=== PATIENT | female | born 1985 | race Caucasian/White ===

== ENCOUNTER → 2016-09-19 | Outpatient (CLI) | payer BC ==
[~2016-09-19] MED LIST: PRENTAB26 PO; RANI150T3 PO; SULF800T23 PO
[2016-09-19 12:08] LABS: HEMATOCRIT 38.2 % (37-47)
[2016-09-19 12:20] LABS: URINE APPEARANCE CLOUDY (CLEAR); URINE BILIRUBIN NEG (NEG); URINE COLOR YELLOW; URINE EPITHELIAL CELL AUTO >30 /lpf (0-5); URINE NITRITE NEG (NEG); URINE SPECIFIC GRAVITY 1.027 (1.000-1.030); UROBILINOGEN NEG (NEG)
[2016-09-19 12:25] LABS: MANUAL MICROSCOPIC REQUIRED? NO; REVIEW REQ? YES
[2016-09-19 13:04] LABS: GTGD 50 Grams
== END | disposition home or self-care (01) ==
LOC: C.LAB1850 10:23
PROVIDERS: ATTEND Obstetrics & Gynecology
DX: O09.813 Supervision of pregnancy resulting from assisted reproductive technology, third trimester (principal)

== ENCOUNTER → 2016-10-19 | Outpatient (CLI) | payer BC ==
[2016-10-19 11:44] LABS: PATIENT HEIGHT 167.6 cm
[2016-10-19 14:23] LABS: CREATININE 0.65 mg/dl (0.6-1.2); URINE TOTAL PROTEIN CALC 178.9 mg/24 hr (0-149.1)
== END | disposition home or self-care (01) ==
LOC: C.LABBC 11:33
PROVIDERS: ATTEND Obstetrics & Gynecology
DX: O13.9 Gestational [pregnancy-induced] hypertension without significant proteinuria, unspecified trimester (principal); Z3A.00 Weeks of gestation of pregnancy not specified

== ENCOUNTER → 2016-11-12 | Outpatient (CLI) | payer BC | END | disposition home or self-care (01) | LOC: C.LABSPEC 13:38 | PROVIDERS: ATTEND Obstetrics & Gynecology | DX: O09.813 Supervision of pregnancy resulting from assisted reproductive technology, third trimester (principal) ==

== ENCOUNTER 2016-11-25 02:15 | Inpatient (IN) | payer BC ==
[~2016-11-25] VITALS: Ht 167.6 cm; Wt 95.0 kg
[2016-11-25] MEDS ORDERED: RANI150T3 PO (02:51)
[2016-11-25 02:52] VITALS: Ht 167.6 cm; Wt 95.0 kg
[2016-11-25] MEDS ORDERED: LACTATED RINGER'S 1000ML 1,000 ML IV PRN (03:06)
[2016-11-25] MEDS ORDERED: PENICILLIN G POTASSIUM IV 6 MU in DEXTROSE 5% 250ML 250 ML IV ONE (03:15)
[2016-11-25 03:30] LABS: HEMATOCRIT 37.5 % (37-47); MEAN CELL VOLUME 80.3 fL (80-100); MEAN CORPUSCULAR HEMOGLOBIN 26.6 pg (25-34); MEAN CORPUSCULAR HGB CONC 33.1 g/dl (32-36); PLATELET COUNT 256 K/uL (130-400); RED BLOOD COUNT 4.67 M/uL (4.2-5.4); WHITE BLOOD COUNT 12.15 K/uL (4.8-10.8)
[2016-11-25] MEDS: LACTATED RINGER'S 1000ML 1,000 ML IV SCH ×3 (03:37→16:54)
[2016-11-25] MEDS ORDERED: LACTATED RINGER'S 1000ML 500 ML IV PRN ×2 (06:15→08:03)
[2016-11-25] MEDS ORDERED: OXYTOCIN 30 UNITS/500ML NSS IV PRN ×2 (06:15→23:15)
[2016-11-25] MEDS: PENICILLIN G POTASSIUM IV 3 MU in DEXTROSE 5% 100ML 100 ML IV PRN ×4 (07:09→19:08)
[2016-11-25] MEDS ORDERED: BUPIVACAINE 0.25% 30 ML VIAL ONE (07:12)
[2016-11-25] MEDS ORDERED: EpHEDrine SULFATE INJ 50 MG/ML AMP ONE (07:13)
[2016-11-25] MEDS ORDERED: FENTANYL CITRATE INJ 50 MCG/1 ML 2 ML VIAL ONE (07:13)
[2016-11-25] MEDS ORDERED: FENTANYL 2MCG/ML ROPIV 1.25MG/ML 100ML BAG EPI ONE (07:14)
[2016-11-25] MEDS ORDERED: NALOXONE HCL INJ 1 MG in SODIUM CHLORIDE 0.9% 1000ML 1,000 ML IV PRN (08:03)
[2016-11-25] MEDS ORDERED: ONDANSETRON INJ 2 MG/ML 2 ML VIAL IV PRN (08:15)
[2016-11-25] MEDS ORDERED: NALBUPHINE HCL INJ 10 MG/ML AMP IV PRN (08:15)
[2016-11-25] MEDS ORDERED: NALOXONE HCL INJ 0.4 MG/1 ML VIAL/CARP IV PRN (08:15)
[2016-11-25] MEDS ORDERED: DiphenhydrAMINE HCL 50 MG/ML VIAL IV PRN (08:15)
[2016-11-25] MEDS ORDERED: EpHEDrine SULFATE INJ 50 MG/ML AMP IV PRN (08:15)
[2016-11-25] MEDS: FENTANYL 2MCG/ML ROPIV 1.25MG/ML 100ML BAG EPI PRN ×2 (16:42→19:01)
[2016-11-25] MEDS ORDERED: LANOLIN OINT EXT PRN ×2 (23:15)
[2016-11-25] MEDS ORDERED: ACETAMINOPHEN/CODEINE 300/30MG TAB PO PRN ×2 (23:15)
[2016-11-25] MEDS ORDERED: OXYCODONE/ACETAMINOPHEN 5-325 TAB PO PRN (23:15)
[2016-11-25] MEDS ORDERED: HYDROCORTISONE ACETATE 25 MG SUPP PR PRN (23:15)
[2016-11-25] MEDS ORDERED: SUPERCREAM 0.870 % 15GM JAR EXT PRN (23:15)
[2016-11-25] MEDS ORDERED: BENZOCAINE 20% AER SPR 82.5 GM CAN EXT PRN (23:15)
[2016-11-25] MEDS ORDERED: ACETAMINOPHEN 325 MG TAB PO PRN (23:15)
--- NOTE | 2016-11-25 23:24 | Anesthesia Procedure Note ---
Anesthesia Epidural Removal Nt Date & Time Nov 25, 2016 at 23:23 Vital Signs Pain Intensity: 5.0 Notes Mental Status: alert / awake / arousable, participated in evaluation Nausea / Vomiting: adequately controlled Pain: adequately controlled Airway Patency, RR, SpO2: stable & adequate BP & HR: stable & adequate Hydration State: stable & adequate Neuraxial Anesthesia: was administered, sensory block is resolving Anesthetic Complications: no major complications apparent, pt satisfied with anesthetic care Epidural: removed without complications, with tip intact
[2016-11-26] VITALS (7 sets, daily range): BP systolic 103–130; BP diastolic 32–79; PULSE 84–113; TEMP 36.5–37; O2SAT 96–97
--- NOTE | 2016-11-26 00:57 | DELIVERY SUMMARY ---
DATE OF OPERATION: 11/25/2016 Xiomara arrived into labor and delivery with ruptured membranes. IV Pitocin was started and heart rate was category 1. She received Pitocin augmentation due to rupture of membranes and progressed to the point of having an epidural and then eventually, progressed to fully dilated. She pushed for approximately 2 hours, delivering a baby in left occiput anterior position. There was a tight nuchal cord, which was clamped and cut after delivery of the head. Mouth and then nares were suctioned with a bulb. Baby was delivered by gentle traction. No excessive force was used. Baby was a live male infant, did require positive pressure ventilation early on, but responded to this nicely and no other further measures were required. The placenta was delivered with gentle traction. Cord gases and cord blood had been obtained. A second-degree tear repaired with 3-0 Vicryl as well as a small periclitoral tear. We did place a red rubber catheter into her urethra to ensure no closure of this as we closed the periclitoral tear and then this was removed. Sponge and instrument counts were correct. IV Pitocin was started and estimated blood loss 250 mL. I attest to the content of the Intraoperative Record and any orders documented therein. Any exceptio ns are noted below.
[2016-11-26] MEDS: IBUPROFEN 600 MG TAB PO PRN ×4 (03:28→20:02)
--- NOTE | 2016-11-26 08:28 | Progress Note ---
Subjective Nov 26, 2016. Subjective conversation w/ patient, physical exam, chart review, lab review Ambulation: ambulating normally Diet Tolerance: Regular Diet Lochia: Small Feeding Type: Breast Feeding Objective Vital Signs Date Time Temp Pulse Resp B/P Pulse Ox O2 Delivery O2 Flow Rate FiO2 11/26/16 03:30 36.5 97 20 125/79 11/26/16 01:20 Room Air 11/26/16 01:20 37.0 104 20 130/79 Physical Exam General Appearance: WELL-APPEARING Abdomen: non tender Fundus: Firm Extremities: no calf tenderness Laboratory Results Last 24 Hours Test 11/26/16 06:40 Hemoglobin 10.3 g/dL Hematocrit 31.0 % Assessment and Plan Post- Day#: 1 Continue Routine Care: ccc
[2016-11-26] MEDS: DOCUSATE SODIUM 100 MG CAP PO SCH ×2 (08:33→20:02)
[2016-11-26] MEDS: PRENATAL VITAMIN TAB PO SCH (08:33)
[2016-11-26] MEDS: CALCIUM CARBONATE 500 MG CHEWABLE PO PRN (13:15)
[2016-11-26] MEDS ORDERED: BISACODYL 5 MG TABEC PO SCH (20:00)
[2016-11-27] MEDS: IBUPROFEN 600 MG TAB PO PRN ×3 (03:56→15:43)
[2016-11-27] MEDS: CALCIUM CARBONATE 500 MG CHEWABLE PO PRN (03:57)
[2016-11-27] MEDS ORDERED: BISACODYL 10 MG SUPP PR PRN (07:00)
--- NOTE | 2016-11-27 07:15 | Progress Note ---
Subjective Nov 27, 2016. Subjective conversation w/ patient, physical exam Ambulation: ambulating normally Voiding: no voiding problems Passing Gas: Yes Diet Tolerance: Regular Diet Lochia: Small Feeding Type: Breast Feeding Review of Systems Constitutional: No chills, No fever Respiratory: No cough, No shortness of breath Cardiac: No chest pain, No palpitations Abdomen: + problem reported (heart burn (using tums)) Objective Vital Signs Date Time Temp Pulse Resp B/P Pulse Ox O2 Delivery O2 Flow Rate FiO2 11/26/16 23:30 36.8 95 16 120/32 11/26/16 23:30 Room Air 11/26/16 20:00 36.6 113 16 103/62 11/26/16 15:05 36.7 90 18 123/74 96 Room Air 11/26/16 15:05 96 Room Air 11/26/16 11:50 36.7 84 16 125/73 96 Room Air 11/26/16 08:10 36.7 96 16 121/77 97 Room Air 11/26/16 08:10 97 Room Air Physical Exam General Appearance: WELL-APPEARING, NO APPARENT DISTRESS Respiratory/Chest: lungs clear, no respiratory distress Cardiovascular: regular rate, rhythm, no murmur Abdomen: non tender, soft Assessment and Plan Post- Day#: 2 Continue Routine Care: Resident Physician Supervision Note: I interviewed and examined the patient. Discussed with Dr. Hendrix and agree with findings and plan as documented in the note. Any exceptions or clarifications are listed here: [None] Documented By: Luz Elena Mccullough s/p Day 2 - vital reviewed and wnl - Blood: A+, GBS+, Rubella immune - Encourage ambulation, encourage breast feeding, monitor lochia - Patient doing well clinically - PATIENT TO BE DISCHARGED TONIGHT
--- NOTE | 2016-11-27 07:17 | Discharge Instructions ---
Discharge Instructions Date of Service Nov 27, 2016. Admission Reason for Admission: PROM Discharge Discharge Diagnosis / Problem: Spontaneous Vaginal Delivery Discharge Goals Goal(s): Routine recovery after delivery Medications Continue Dispensed Medications: supercream, dermaplast, tucks, lansinoh Activity Recommendations Activity Limitations: per Instructions/Follow-up section . Instructions / Follow-Up Instructions / Follow-Up ACTIVITY RECOMMENDATIONS: * Gradual return to full activity over the next 2-3 weeks. * No lifting - nothing heavier than baby over the next 2-3 weeks. * Do not engage in vigorous exercise, sexual activity or sports until cleared by your physician. * Do not drive or operate any motorized equipment until cleared by your physician. * You may shower/bathe daily. MEDICATIONS: For discomfort or pain, you may use Acetaminophen (Tylenol), Ibuprofen (Advil), or Naproxen (Aleve) following the package directions. For constipation you may use Colace following the package directions. BREAST CARE: If you are not breast feeding: * Wear a supportive bra 24 hours a day for one to two weeks. * Avoid stimulating your breasts and nipples as much as possible during the first few weeks after delivery. * When taking a shower, have the warm water hit your back, not breasts. * When your breasts feel full, apply ice packs. Usually three to four times a day helps ease the discomfort. * Take a mild pain medication (Tylenol / Motrin) when you are uncomfortable. If breast feeding: * Use breast milk to lubricate nipples. Lansinoh cream may be used for sore nipples. You do not need to remove cream prior to breast feeding. If using a different brand of cream, check the label for directions regarding removal of cream prior to nursing. * Wear a supportive bra. * If having problems with breasts or breast feeding, call a netsuite consultant or your health care provider. EPISIOTOMY CARE: After delivery, if you have an episiotomy (stitches), the following steps will ease discomfort and aid healing. * For the first 24 hours after delivery, place ice packs next to your episiotomy to help reduce swelling. * After the first 24 hour-period, sitz baths, either portable or in the tub, are suggested. A shower with a shower arm sprayed over the episiotomy may be comforting. * Sumaya care should be done after each voiding and bowel movement. Squirt warm water from a plastic bottle over the perineum (region of the body between the anus and urinary opening) and pat dry. * Use Dermoplast to ease discomfort. Shake container. [place] directly over the episiotomy. Place a Tucks on a clean sanitary pad next to your episiotomy. SPECIAL CARE INSTRUCTIONS: When you are discharged from the hospital, it is important for you to follow the instructions listed below: * During the first week at home, you should be able to care for yourself and your baby. In addition, the usual light household activities are encouraged. * Limit your activities to the way you feel. Do not try to clean the house or move furniture. Be sensible. * If you actively engage in sports and have done so up until the time of your delivery, you may resume these activities as soon as you feel able. This may take up to one month or even longer. Use good judgment. * Continue to take your vitamins for at least six weeks after the of your baby. * Your diet need not be limited unless you were on a special diet before your delivery. Breast-feeding mothers need around 2500 calories per day and at least 64-80 ounces of fluid per day (8 to 10 glasses). * You should eat foods from the four major food groups. Crash diets or fad diets are to be avoided. Eating lean meats, fresh fruits and vegetables, low-fat dairy products, high fiber foods and a regular exercise program, will help you get back to your pre- weight without putting your health at risk. * Constipation is sometimes a problem after delivery. Take a mild laxative as needed. If breast feeding, Milk of Magnesia is acceptable to use. You may use a suppository or Fleets enema if no episiotomy. * A daily shower or tub bath is suggested. Be sure to thoroughly and gently dry the perineum. * A bloody vaginal discharge will usually continue until around four weeks post . A small amount of bleeding may continue for as long as six weeks. Vaginal discharge changes from the bright red bleeding after delivery to pink then brownish and finally yellowish-pink before becoming white and disappearing. * Bleeding may increase with activity. Your first period may come in 4-8 weeks. If you are breast feeding, your period may be delayed even longer. * Omro (sex) can begin whenever both you and your partner feel comfortable and do not have any form of genital infection. It is recommended that you wait at least six weeks for internal and external healing to occur. If you have questions, please talk to your health care practitioner. A condom should be used to prevent infection and . * Foreplay, gentle intercourse and lubrication is very important the first several times to prevent pain. A water-based lubricant such as K-Y jelly or Astroglide may be used. * If you have RH negative blood and your baby is RH positive, you will receive RHOGAM by injection prior to discharge. The nurse will give you a card to keep with you that has the date and place that you received RHOGAM after delivery. * During your care, you had a Rubella screen done to check for the presence of rubella antibodies in your blood. If your test was negative, you will receive a Rubella vaccine prior to discharge. This vaccine may cause a fever, soreness at the injection site and flu-like symptoms. If these symptoms persist, notify your health care practitioner. is not advised for one month after a Rubella vaccine. * Verbalizes understanding of car seat law as reviewed with patient nursing. * Car Seat hand-out given and reviewed with patient by nursing. * Shaken baby information reviewed with patient by nursing. Call you doctor if: * Heavy bleeding (saturating several pads an hour) or passing clots the size of your fist. * A fever >101 degrees F (38.3 degrees C) on two occasions four hours apart and /or chills. * Unusual pain in the pelvic or vaginal areas. * "Baby Blues" lasting longer than two weeks. If you have any questions or concerns, call your health care practitioner at . FOLLOW UP VISIT: * Please call the office at to schedule a 6 week examination. It is important you keep this appointment. It is important for you to make arrangements for either yearly or twice yearly check-ups thereafter. Current Hospital Diet Patient's current hospital diet: Regular OB Diet Discharge Diet Recommended Diet: Regular Diet Pending Studies Studies pending at discharge: no Medical Emergencies . Who to Call and When: Medical Emergencies: If at any time you feel your situation is an emergency, please call 911 immediately. . Non-Emergent Contact Non-Emergency issues call your: Primary Care Provider, Toe Stripper . . "Provider Documentation" section prepared by Rhett Hendrix. VTE Core Measure Inpt VTE Proph given/why not?: Treatment not indicated
[2016-11-27 08:00] VITALS: BP 131/86; PULSE 86; TEMP 36.5
[2016-11-27] MEDS: DOCUSATE SODIUM 100 MG CAP PO SCH (08:18)
[2016-11-27] MEDS: PRENATAL VITAMIN TAB PO SCH (08:18)
[2016-11-27 15:38] VITALS: BP 147/89; PULSE 93; TEMP 36.6
[2016-11-27 18:00] VITALS: BP_DIAS 89; PULSE 93; TEMP 36.6
[2017-04-26] MEDS ORDERED: PRENTAB26 PO (02:51)
== END 2016-11-27 18:30 | disposition home or self-care (01) | DRG 988 ==
LOC: C.OPB 02:15 → C.LD 02:15 → C.OPB 03:08 → C.LD 03:08 → C.OBG 11-26 01:28 → EDSTATUS 12-07 02:14
PROVIDERS: ADMIT Obstetrics & Gynecology; ATTEND Obstetrics & Gynecology
PROC: 10E0XZZ Delivery of Products of Conception, External Approach (ICD-10-PCS; principal; 2016-11-25)
PROC: 0UQM0ZZ Repair Vulva, Open Approach (ICD-10-PCS; principal; 2016-11-25)
PROC: 0UQJXZZ Repair Clitoris, External Approach (ICD-10-PCS; principal; 2016-11-25)
DX: O42.02 Full-term premature rupture of membranes, onset of labor within 24 hours of rupture (principal); O69.1XX0 Labor and delivery complicated by cord around neck, with compression, not applicable or unspecified; O10.92 Unspecified pre-existing hypertension complicating childbirth; O70.1 Second degree perineal laceration during delivery; O71.89 Other specified obstetric trauma; O99.214 Obesity complicating childbirth; E66.9 Obesity, unspecified; Z68.33 Body mass index [BMI] 33.0-33.9, adult; O99.824 Streptococcus B carrier state complicating childbirth; O75.89 Other specified complications of labor and delivery; Z37.0 Single live birth; Z3A.38 38 weeks gestation of pregnancy

== ENCOUNTER 2017-04-26 17:27 | Emergency (ER) | payer BC ==
[~2017-04-26] VITALS: Ht 167.6 cm; Wt 84.4 kg
[~2017-04-26 17:27] MED LIST changes: -SULF800T23 PO
[2017-04-26 17:36] VITALS: TEMP 37.2; Ht 167.6 cm; Wt 84.4 kg
[2017-04-26] MEDS ORDERED: SODIUM CHLORIDE 0.9% 1000ML 1,000 ML IV STA (17:52)
[2017-04-26] MEDS ORDERED: SULF800T23 PO (18:19)
[2017-04-26 18:27] LABS: BASO % 0.2 %; BASO ABS # 0.02 K/uL (0-0.2); COMPLETE YES; EOS % 0.2 %; IG% 0.4 %; LYMPH % 9.3 %; LYMPH ABS # 1.24 K/uL (1.2-3.4); MEAN CELL VOLUME 80.2 fL (80-100); MEAN CORPUSCULAR HEMOGLOBIN 26.4 pg (25-34); MEAN CORPUSCULAR HGB CONC 32.9 g/dl (32-36); MEAN PLATELET VOLUME 9.5 fL (7.4-10.4); MONO % 7.3 %; NEUT % 82.6 %; PLATELET COUNT 259 K/uL (130-400); RED BLOOD COUNT 5.11 M/uL (4.2-5.4); WHITE BLOOD COUNT 13.33 K/uL (4.8-10.8)
[2017-04-26 18:40] LABS: BUN/CREATININE RATIO 10.8 (10-20); CALCIUM 8.9 mg/dl (8.5-10.1); CREATININE 0.91 mg/dl (0.60-1.20); POTASSIUM 3.6 mmol/L (3.5-5.1)
--- NOTE | 2017-04-26 18:42 | DIAGNOSTIC IMAGING REPORT ---
CT OF THE ABDOMEN AND PELVIS WITHOUT CONTRAST, STONE PROTOCOL CLINICAL HISTORY: Flank pain and hematuria. Urinary tract infection. Fever. COMPARISON STUDY: None. TECHNIQUE: Helical axial images of the abdomen and pelvis were obtained without IV or oral contrast according to renal stone protocol. A dose lowering technique was utilized adhering to the principles of ALARA. FINDINGS: There is a probable punctate calculus within the lower pole of the right kidney shown on image 217 of [id number]. There is no hydronephrosis or hydroureter. No ureteral calculi are present. There is mild infiltration adjacent to the lower pole of the right kidney and proximal to mid right ureter. Evaluation for pyelonephritis is suboptimal on this unenhanced exam. Unenhanced images of the liver, spleen, adrenal glands and pancreas are normal. There is no evidence for a bowel obstruction. The appendix is normal. The ovaries are not enlarged. Visualized skeletal structures are unremarkable. IMPRESSION: Probable punctate right renal calculus. No ureteral calculi or hydronephrosis. Mild right perinephric and periureteral infiltration could be due to an infectious process such as pyelitis/pyelonephritis which is suboptimally assessed on this unenhanced exam. A recently passed calculus could have a similar imaging appearance. This could be correlated with urinalysis and other clinical evidence for an infectious process. Electronically signed by: Kervin Daniel M.D. 04/26/2017 6:41 PM Dictated Date/Time: 04/26/2017 6:32 PM
[2017-04-26 18:43] LABS: ALB/GLOB RATIO 0.9 (0.9-2)
[2017-04-26 18:50] LABS: URINE APPEARANCE CLEAR (CLEAR); URINE BILIRUBIN NEG (NEG); URINE COLOR YELLOW; URINE EPITHELIAL CELL AUTO >30 /lpf (0-5); URINE NITRITE NEG (NEG); UROBILINOGEN NEG (NEG); ZZUR CULT IF INDIC CLEAN CATCH NO
[2017-04-26 18:51] LABS: MANUAL MICROSCOPIC REQUIRED? NO; REVIEW REQ? NO
[2017-04-26 19:08] VITALS: BP 127/87; PULSE 99; O2SAT 97
--- NOTE | 2017-04-26 19:11 | EMERGENCY ROOM VISIT NOTE ---
History First contact with patient: 17:42 Chief Complaint: URINARY SYMPTOMS Stated Complaint: UTI WITH FEVER THAT WON'T GO DOWN History of Present Illness The patient is a 32 year old female who presents to the Emergency Room with complaints of right flank pain, lower back pain and fever. The patient reports that her symptoms started last evening. She did not check her temperature last night, but felt like she was feverish. This morning when she took her temperature, it was 101F. When the flank pain continued to worsen, she went to the [facility] urgent care center where she was administered Rocephin IM. Her urine dip showed blood and white cells in the urine. She was provided a prescription for Bactrim DS twice daily, and instructed to come to the emergency department for any worsening fever or other symptoms. The patient reports that she took Advil two hours prior to arrival, and Tylenol one hour ago. She currently rates her discomfort a 3 out of 10. She denies any nausea. The patient denies any personal history of kidney stones or infections. She does have a moderate history of urinary tract infections. Review of Systems HEENT: Denies dizziness, visual problems, hearing loss, tinnitus. Denies difficulty swallowing or oral lesions. She does not appear acutely ill or toxic , nor does she appear in any acute distress. PULMONARY: Denies cough, shortness of breath, sputum production or hemoptysis. CARDIOVASCULAR: Denies chest pain, palpitations, dyspnea on exertion, orthopnea or peripheral edema. GASTROINTESTINAL: Denies diarrhea, constipation, nausea, vomiting, or abdominal pain. GENITOURINARY: Denies any significant preceding dysuria, frequency, urgency or nocturia. NEUROLOGIC: Denies history of epilepsy, CVA, TIA or chronic headaches. MUSCULOSKELETAL: Denies history of joint tenderness/swelling. SKIN: Denies rashes or lesions. PSYCHIATRIC: Denies history of depression or mental illness. ENDOCRINE: Denies history of diabetes or thyroid disorders. Past Medical/Surgical History Medical Problems: (1) PROM (premature rupture of membranes) Social History Smoking Status: Never Smoker Alcohol Use: none Marital Status: Housing Status: lives with family Occupation Status: employed Current/Historical Medications Scheduled Multivit/Min/Iron/Fol Ac/Pren ( Vitamin), 1 TAB PO DAILY Sulfamethoxazole-Trimethoprim (Bactrim Ds 800MG/160MG), 1 TAB PO BID Physical Exam Vital Signs Date Time Temp Pulse Resp B/P (MAP) Pulse Ox O2 Delivery O2 Flow Rate FiO2 04/26/17 17:36 37.2 121 18 124/73 98 Room Air Physical Exam CONSTITUTIONAL: Healthy and well nourished. Alert and oriented X 3 with positive affect. Patient does not appear acutely ill or toxic. HEENT: Normocephalic, atraumatic. Pupils equal, round and reactive. Ears and nares are clear. No scleral icterus or conjunctival injection. NECK: Full active range of motion without discomfort. RESPIRATORY: Clear to auscultation bilaterally with no wheezing, crackles, rhonchi or stridor. CARDIOVASCULAR: Regular rate and rhythm with no murmurs, rubs or gallops. GASTROINTESTINAL: Bowel sounds present in all quadrants. Patient has no abdominal tenderness to palpation. Negative McBurney's point tenderness. No suprapubic tenderness to palpation. Patient has a mild right CVA tenderness. No abdominal rigidity, guarding or rebound. MUSCULOSKELETAL: Full range of motion of all joints without discomfort. INTEGUMENTARY: No rash or other significant dermatologic conditions noted. HEMATOLOGIC: No ecchymosis or petechiae. NEUROLOGIC: No focal neurologic deficits noted. Medical Decision & Procedures ER Provider Diagnostic Interpretation: Noncontrast CT of the abdomen and pelvis does not show any obvious ureteral calculi. There is some thickening of the proximal ureter, suggestive of infectious process, but not optimally evaluated with a noncontrast study. No other acute findings are noted on exam. Radiologist report is as follows: CT OF THE ABDOMEN AND PELVIS WITHOUT CONTRAST, STONE PROTOCOL CLINICAL HISTORY: Flank pain and hematuria. Urinary tract infection. Fever. COMPARISON STUDY: None. TECHNIQUE: Helical axial images of the abdomen and pelvis were obtained without IV or oral contrast according to renal stone protocol. A dose lowering technique was utilized adhering to the principles of ALARA. FINDINGS: There is a probable punctate calculus within the lower pole of the right kidney shown on image 217 of [id number]. There is no hydronephrosis or hydroureter. No ureteral calculi are present. There is mild infiltration adjacent to the lower pole of the right kidney and proximal to mid right ureter. Evaluation for pyelonephritis is suboptimal on this unenhanced exam. Unenhanced images of the liver, spleen, adrenal glands and pancreas are normal. There is no evidence for a bowel obstruction. The appendix is normal. The ovaries are not enlarged. Visualized skeletal structures are unremarkable. IMPRESSION: Probable punctate right renal calculus. No ureteral calculi or hydronephrosis. Mild right perinephric and periureteral infiltration could be due to an infectious process such as pyelitis/pyelonephritis which is suboptimally assessed on this unenhanced exam. A recently passed calculus could have a similar imaging appearance. This could be correlated with urinalysis and other clinical evidence for an infectious process. Laboratory Results 04/26/17 17:07 Red Blood Count 5.11, Mean Corpuscular Volume 80.2, Mean Corpuscular Hemoglobin 26.4, Mean Corpuscular Hemoglobin Concent 32.9, Mean Platelet Volume 9.5, Neutrophils (%) (Auto) 82.6, Lymphocytes (%) (Auto) 9.3, Monocytes (%) (Auto) 7.3, Eosinophils (%) (Auto) 0.2, Basophils (%) (Auto) 0.2, Neutrophils # (Auto) 11.03, Lymphocytes # (Auto) 1.24, Monocytes # (Auto) 0.97, Eosinophils # (Auto) 0.02, Basophils # (Auto) 0.02 04/26/17 17:07 Test 04/26/17 17:07 04/26/17 17:16 04/26/17 18:14 White Blood Count 13.33 K/uL (4.8-10.8) Red Blood Count 5.11 M/uL (4.2-5.4) Hemoglobin 13.5 g/dL (12.0-16.0) Hematocrit 41.0 % (37-47) Mean Corpuscular Volume 80.2 fL (80-100) Mean Corpuscular Hemoglobin 26.4 pg (25-34) Mean Corpuscular Hemoglobin Concent 32.9 g/dl (32-36) Platelet Count 259 K/uL (130-400) Mean Platelet Volume 9.5 fL (7.4-10.4) Neutrophils (%) (Auto) 82.6 % Lymphocytes (%) (Auto) 9.3 % Monocytes (%) (Auto) 7.3 % Eosinophils (%) (Auto) 0.2 % Basophils (%) (Auto) 0.2 % Neutrophils # (Auto) 11.03 K/uL (1.4-6.5) Lymphocytes # (Auto) 1.24 K/uL (1.2-3.4) Monocytes # (Auto) 0.97 K/uL (0.11-0.59) Eosinophils # (Auto) 0.02 K/uL (0-0.5) Basophils # (Auto) 0.02 K/uL (0-0.2) RDW Standard Deviation 43.7 fL (36.4-46.3) RDW Coefficient of Variation 14.8 % (11.5-14.5) Immature Granulocyte % (Auto) 0.4 % Immature Granulocyte # (Auto) 0.05 K/uL (0.00-0.02) Anion Gap 8.0 mmol/L (3-11) Est Creatinine Clear Calc Drug Dose 95.3 ml/min Estimated GFR () 95.4 Estimated GFR (Non- 82.3 BUN/Creatinine Ratio 10.8 (10-20) Calcium Level 8.9 mg/dl (8.5-10.1) Total Bilirubin 0.5 mg/dl (0.2-1) Aspartate Amino Transf (AST/SGOT) 13 U/L (15-37) Alanine Aminotransferase (ALT/SGPT) 21 U/L (12-78) Alkaline Phosphatase 123 U/L (45-117) Total Protein 7.9 gm/dl (6.4-8.2) Albumin 3.8 gm/dl (3.4-5.0) Globulin 4.1 gm/dl (2.5-4.0) Albumin/Globulin Ratio 0.9 (0.9-2) Lipase 162 U/L (73-393) Urine Color YELLOW Urine Appearance CLEAR (CLEAR) Urine pH 7.0 (4.5-7.5) Urine Specific [place] 1.010 (1.000-1.030) Urine Protein NEG (NEG) Urine Glucose (UA) NEG (NEG) Urine Ketones NEG (NEG) Urine Occult Blood 2+ (NEG) Urine Nitrite NEG (NEG) Urine Bilirubin NEG (NEG) Urine Urobilinogen NEG (NEG) Urine Leukocyte Esterase SMALL (NEG) Urine WBC (Auto) 5-10 /hpf (0-5) Urine RBC (Auto) 10-30 /hpf (0-4) Urine Hyaline Casts (Auto) 0 /lpf (0-5) Urine Epithelial Cells (Auto) >30 /lpf (0-5) Urine Bacteria (Auto) NEG (NEG) Bedside Lactic Acid Venous 1.23 mmol/L (0.90-1.70) The above labs were reviewed. Bedside blood gas it is normal. Blood cultures 2 were collected and pending. Urinalysis shows a contaminated sample with hematuria, leukocyte esterase and white cells. No hyaline casts are noted. The patient also has a mild leukocytosis with no electrolyte abnormalities. Glucose is 170. Medications Administered Medications (Trade) Dose Ordered Sig/Susy Route Start Time Stop Time Status Last Admin Dose Admin Sodium Chloride 1,000 ml @ 999 mls/hr Q1H1M STAT IV 04/26/17 17:52 04/26/17 18:52 DC 04/26/17 17:52 999 MLS/HR Procedure IV hydration: The patient was administered a normal saline 1 L bolus ED Course Patient history and physical exam were performed. Nurse's notes were reviewed. Vital signs were reviewed. The patient is afebrile. Pulse rate is 121. The patient is normotensive. The patient does not appear acutely ill or toxic. Given the patient's treatment at the [facility] urgent [facility] [place], I did suggest performing some imaging studies to rule out obstructive uropathy or other acute findings. The patient was in agreement. IV access was established , and labs were drawn, including a point care lactic acid and blood cultures 2. Lactic acid was normal. Review of labs shows a mild leukocytosis. Creatinine is normal. Shows a contaminated sample. Urine cultures were ordered and pending. Noncontrast CT of the abdomen and pelvis shows a right lower pole renal calculus, otherwise no obvious ureteral calculi are noted. There is some changes on CT suggestive of pyelonephritis or recently passed stone. I favor the former. I did discuss the case further with Dr. Briceno, ED attending physician, who does not suggest any further intravenous antibiotics since she just got a Rocephin injection approximately 6 hours ago. He also agrees with continuing Bactrim DS antibiotics at home. The patient was provided return instructions for progressive be worsening pain, increasing fever, vomiting or other concerning symptoms. The patient refused any prescription analgesics or antiemetics because she is currently breast-feeding. I did encourage her to follow-up with her PCP in 2-3 days for reevaluation. The patient was happy with plan of care, voiced understanding of all discharge instructions, and denied any significant discomfort or nausea at the time of discharge. Medical Decision Patient history and workup today is most suggestive of pyelonephritis. CT scan does not show any evidence for ureteral calculi or other obstructive uropathy, except for changes on CT scan suggesting a recently passed stone or pyelonephritis. Given that the patient has a fever and leukocytosis, I suspect pyelonephritis. I do not suspect acute appendicitis, diverticulitis, pancreatitis, hepatitis, ischemic gut or other acute intra-abdominal etiologies. The patient feels well enough to go home at this point, and was instructed to return for any worsening symptoms. Medication Reconcilliation Current Medication List: was personally reviewed by me Blood Pressure Screening Patient's blood pressure: Normal blood pressure Impression Primary Impression: Pyelonephritis Departure Information Dispostion Home / Self-Care Referrals Krupa Chandler D.O. (PCP) Forms HOME CARE DOCUMENTATION FORM, IMPORTANT VISIT INFORMATION Patient Instructions My [facility] Additional Instructions Continue taking Bactrim DS twice daily as prescribed. Increase fluid intake. Ibuprofen 800 mg and/or Tylenol 1000 mg every 8 hours. You may also alternate these medications for more effective pain relief: Ibuprofen --4 HRS--> Tylenol --4 HRS--> ibuprofen --4 HRS--> Tylenol .... Follow-up with your family doctor for recheck within the next 2-3 days. Return to the emergency department for any progressively worsening pain, increasing fever, persistent vomiting or other concerning symptoms.
== END 2017-04-26 19:10 | disposition home or self-care (01) ==
LOC: C.EDB 17:28 → C.EDC 19:10
DX: N12 Tubulo-interstitial nephritis, not specified as acute or chronic (principal)